=== PATIENT | female | born 1995 | race Caucasian/White ===

== ENCOUNTER 2019-04-22 17:53 | Inpatient (IN) ==
[2019-04-22] MEDS ORDERED: Oxytocin 20 Units + LR 20 UNIT/1,000 ML BAG IV ONE (18:10)
[2019-04-22] MEDS ORDERED: LIDOCAINE HCL 2 % 10 ML JELLY URO-JECT TOPICAL PRN ×2 (18:46→22:38)
[2019-04-22] MEDS ORDERED: MISOPROSTOL 200 MCG TABLET RECTAL PRN (18:46)
[2019-04-22] MEDS ORDERED: NALOXONE 0.4 MG/1 ML VIAL IVP PRN (18:46)
[2019-04-22] MEDS ORDERED: BUTORPHANOL TARTRATE 2 MG/1 ML VIAL IVP PRN (18:46)
[2019-04-22] MEDS ORDERED: Naloxone Inj 0.01 MG in Sodium Chloride 0.9% vial 1 ML IVP PRN (18:46)
[2019-04-22] MEDS ORDERED: FAMOTIDINE 20 MG/2 ML VIAL IVP PRN ×2 (18:46)
[2019-04-22] MEDS ORDERED: METHYLERGONOVINE MALEATE 0.2 MG/1 ML VIAL IM PRN (18:46)
[2019-04-22] MEDS ORDERED: ONDANSETRON 4 MG/2 ML VIAL IVP PRN ×2 (18:46→22:38)
[2019-04-22] MEDS ORDERED: diphenhydrAMINE 50 MG/1 ML VIAL IVP PRN ×2 (18:46→22:38)
[2019-04-22] MEDS ORDERED: fentaNYL Inj 100 MCG/2 ML VIAL IV PRN (18:46)
[2019-04-22] MEDS ORDERED: OXYTOCIN 10 UNIT/1 ML IM PRN (18:46)
[2019-04-22] MEDS ORDERED: CITRIC ACID/SODIUM CITRATE 30 ML CUP PO PRN (18:46)
[2019-04-22] MEDS ORDERED: LIDOCAINE W/ SODIUM BICARB 0.5 ML SYR SUBD PRN (18:46)
[2019-04-22] MEDS ORDERED: CALCIUM CARBONATE 500 MG (TUMS) CHEWABLE TABLET PO PRN ×2 (18:46→22:38)
[2019-04-22] MEDS ORDERED: Metoclopramide Inj 10 MG/2 ML VIAL IV PRN (18:46)
[2019-04-22] MEDS ORDERED: CefOXitin Inj 2 GM in Sodium Chloride 0.9% 100 ML IV PRN (18:46)
[2019-04-22] MEDS ORDERED: Phenylephrine Inj 50 MCG in Sodium Chloride 0.9% vial 0.5 ML IVP PRN (18:46)
[2019-04-22] MEDS ORDERED: Nalbuphine Inj 20 MG/ML Ampule IVP PRN ×2 (18:46→22:38)
[2019-04-22] MEDS ORDERED: ePHEDrine Inj 50 MG/ML AMP IVP PRN (18:46)
[2019-04-22] MEDS ORDERED: Carboprost Inj 250 MCG/ML AMP IM PRN (18:46)
[2019-04-22] MEDS ORDERED: TERBUTALINE SULFATE 1 MG/1 ML SDV SUBCUT PRN (18:46)
[2019-04-22 18:55] LABS: BASOPHILS # (AUTO) 0.02 10*3/UL; BASOPHILS % (AUTO) 0.1 % (0-1); EOSINOPHILS # (AUTO) 0 10*3/UL; EOSINOPHILS % (AUTO) 0 % (0-8); Hematocrit [HCT] 43.3 % (37.0-47.0); Hemoglobin [HGB] 14.7 g/dL (12.0-16.0); LYMPHOCYTES # (AUTO) 1.03 10*3/uL; MEAN CORPUSCULAR HEMOGLOBIN 29.2 PG (27-31); MEAN CORPUSCULAR HGB CONC 33.9 g/dL (33-37); MEAN CORPUSCULAR VOLUME 86.1 FL (81-99); MEAN PLATELET VOLUME 10.9 FL (7.4-12.2); MONOCYTES # (AUTO) 0.63 10*3/UL (0.3-0.8); MONOCYTES % (AUTO) 3.6 % (5-15); NEUTROPHILS # (AUTO) 15.99 10*3/UL; NEUTROPHILS % (AUTO) 90.3 % (50-80); RED BLOOD COUNT 5.03 10^6/uL (4.20-5.40)
[2019-04-22 18:59] LABS: PLATELET MORPHOLOGY COMMENT NORMAL MORPHOLOGY (NORM); RBC MORPHOLOGY COMMENT NORMAL MORPHOLOGY (NORM); WBC MORPHOLOGY COMMENT NORMAL MORPHOLOGY (NORM)
[2019-04-22] MEDS ORDERED: Oxytocin 20 Units + LR 20 UNIT/1,000 ML BAG IV SCH ×2 (19:00→22:38)
[2019-04-22] MEDS ORDERED: Lactated Ringers-OB Dept 1,000 ML PRIMARY IV SCH (19:00)
[2019-04-22] MEDS: Lidocaine 1% 10 MG/ML - 20 ML VIAL SUBCUT PRN ×2 (19:00→20:00)
[2019-04-22 19:43] LABS: HIV ANTIBODY NEGATIVE (N); HIV-1 P24 ANTIGEN NEGATIVE (N)
--- NOTE | 2019-04-22 20:27 | OB.DEL.SUM ---
Delivery Note Delivery Summary: The patient is a 23-year-old G2 now P2 last menstrual period may be the middle of August 2018 but the patient was not sure who presented to labor and delivery thinking that she was in labor. The patient had no care. The patient discovered that she may be about 2 or 3 months ago. The patient started having pain this morning which later this afternoon the patient realizes were contractions and then the patient presented to [facility] thinking that she may be in labor. The patient was found to have a bulging bag with meconium present. The patient spontaneously ruptured. I then checked the patient and the patient was found to be complete and +2 station. Past medical history-noncontributory. No hypertension, no diabetes no asthma. The patient denied drug use. Past surgical history-noncontributory. History of spontaneous vaginal delivery. No known drug allergies Tobacco one pack per day, rare alcohol during this . No drugs per patient. The patient stated that she was in denial of this and did not want to seek care. When the patient presented and had spontaneous rupture of membranes there was meconium. Anesthesia and pediatrics was called. They were present for delivery in labor and delivery. The baby delivered in an OA presentation and the anterior shoulder was delivered and then the posterior shoulder and then the baby had a lusty cry and the mouth and nose were bulb suctioned. The baby was very vigorous and had an excellent cry. Delayed cord clamping was allowed for greater than 30 seconds and then the cord was clamped and cut. The baby was brought over to the warmer. The baby continued to have a lusty cry. A section of cord was obtained for cord gases. Then cord blood was obtained. The patient's placenta was then delivered spontaneously. The patient's perineum was examined and there was a small second degree laceration midline and then there was a laceration right vaginal sidewall/periurethral laceration. The second-degree laceration was repaired with 3-0 Vicryl rapide suture in the usual fashion. The right vaginal sidewall laceration was repaired using 4-0 Vicryl rapide suture in an interrupted fashion. I did place a red rubber catheter to ensure that the urethra was kept patent. The interrupted sutures were 4 mm away from the patient's urethra. There were no other lacerations to repair. A rectal exam was completed to ensure that there were no buttonhole lacerations. Sponge lap and needle counts were correct 2. The patient and her baby would recover in the room. Findings were a male infant with Apgars of 8 and 9. Weight was 7 pounds 0.9 ounces. ABG was completed and was normal but I do not have the results currently. EBL was 350 mL. Group B strep status is unknown. Pediatrics aware.
[2019-04-22 21:14] LABS: AMPHETAMINE SCREEN NEGATIVE (NEG); CANNABINOID SCREEN,URINE NEGATIVE (NEG); COCAINE SCREEN NEGATIVE (NEG); METHADONE URINE SCREEN NEGATIVE (NEG); METHAMPHETAMINES SCREEN,URINE NEGATIVE (NEG); OPIATE SCREEN,URINE NEGATIVE (NEG); URINE SAMPLE TYPE VOIDED SPECIMEN
[2019-04-22] MEDS ORDERED: Lactated Ringers 1,000 ML PRIMARY IV SCH (22:38)
[2019-04-22] MEDS ORDERED: diphenhydrAMINE 25 MG CAPSULE PO PRN (22:38)
[2019-04-22] MEDS ORDERED: Ondansetron ODT Tab 4 MG TAB PO PRN (22:38)
[2019-04-22] MEDS ORDERED: LANOLIN HPA 40 GM TUBE TOPICAL PRN (22:38)
[2019-04-22] MEDS ORDERED: Lidocaine 1% 10 MG/ML - 20 ML VIAL INTRADERM PRN (22:38)
[2019-04-22] MEDS ORDERED: GLYCERIN/WITCH HAZEL 1 BOX TOPICAL PRN (22:38)
[2019-04-22] MEDS ORDERED: HYDROcodone-APAP 5 MG -325 MG TABLET PO PRN (22:38)
[2019-04-22] MEDS ORDERED: DIPH,PERTUSS,TET(ADACEL) VAC/PF 0.5 ML (Tdap) IM ONE (22:38)
[2019-04-22] MEDS ORDERED: ACETAMINOPHEN 325 MG TABLET PO PRN (22:38)
[2019-04-22] MEDS ORDERED: BENZOCAINE/MENTHOL SPRAY 56 GM BOTTLE TOPICAL PRN (22:38)
[2019-04-22] MEDS ORDERED: Lidocaine Inj 1% 20 ML ONE (22:52)
[2019-04-22] MEDS: IBUPROFEN 800 MG TABLET PO PRN (23:10)
[2019-04-23 08:07] LABS: Hematocrit [HCT] 34.8 % (37.0-47.0); MEAN CORPUSCULAR HEMOGLOBIN 29.8 PG (27-31); MEAN CORPUSCULAR HGB CONC 34.5 g/dL (33-37); MEAN CORPUSCULAR VOLUME 86.4 FL (81-99); MEAN PLATELET VOLUME 10.3 FL (7.4-12.2); RED BLOOD COUNT 4.03 10^6/uL (4.20-5.40)
[2019-04-23] MEDS: IBUPROFEN 800 MG TABLET PO PRN (08:19)
[2019-04-23] MEDS ORDERED: Prenatal Multivitamin Tab 1 TAB TAB PO SCH (09:00)
[2019-04-23] MEDS ORDERED: DOCUSATE 100 MG CAPSULE PO SCH (09:00)
[2019-04-23 16:05] VITALS: BP 115/77; RESP 16; TEMP 98.5; O2SAT 98
--- NOTE | 2019-04-23 16:13 | OB.PROGRES ---
Subjective Post Day: 1 Pain Management: PO [place] Catheter: No Flatus: Yes Lochia Color: Rubra/Red Scant < 10 ml Diet: Regular Feeding Method: / Bottle Ambulating: Yes Concerns / Additional Information: The patient states that she is doing okay. Her family and significant other have been extremely supportive since she did not tell them that she was until yesterday evening. She cannot explain why she did not tell them before that time. She cannot explain why she did not make an appointment for OB care. Objective - General General Appearance: POSITIVE: No Acute Distress, Cooperative (Alert and oriented 3. Patient has normal speech and thought processes.) - Cardiovacular Cardiovascular Exam: POSITIVE: RRR Edema: +1 Pedal Edema Extremities: Negative Heidy's - Bilaterally - Respiratory Respiratory Exam: POSITIVE: Clear to Auscultation - Bilaterally - Abdomen Bowel Sounds: Present - Fundus/Lochia/Perineum Uterus Consistency: Firm Uterus Position: POSITIVE: At Umbilicus Other Exam Details: Abdomen soft and nontender without guarding or rebound Assesstment / Plan Assessment / Plan: Assessment: day #1 status post spontaneous vaginal delivery over a small midline laceration and a right periurethral vaginal laceration and both lacerations were repaired. The patient is voiding well. Patient's post labs were normal. Very minimal anemia. Platelets normal. Urine drug screen was negative. The patient cannot explain why she did not inform her significant other about . The patient was scared that they have their own son plus there significant other's nephews and she was concerned that her significant other would be upset that she was . The patient does not have a significant history of depression or depression or anxiety. The patient does not have a history of or does not appear to have psychosis. In talking with the patient, the patient appears to just have been concerned about rejection with this . The patient is so pleased that her family and her significant other have been so accepting of this baby and her since yesterday evening. Plan: Discharge home today. The baby will stay the night and the mother will room in. The patient should make an appointment with me for the next couple weeks so that we can determine how she is doing and then for a 6 week appointment. The patient stated that on Thursday, which is 2 days from now, she will call the stated [place] [employer]'s office to apply for Medicaid. She will also apply for Medicaid for her . The patient should take a multivitamin with folic acid daily. Ibuprofen 200 mg tablets 3-4 tablets by mouth 3 times a day with food or milk. The patient may purchase these [id number] since currently she does not have insurance. Colace 100 mg capsule 1 capsule by mouth daily to twice a day when necessary constipation would be suggested if the patient becomes constipated. The patient was encouraged to drink at least 8-10 glasses of water per day The patient states that she is interested in a tubal ligation. We talked briefly about this but I informed the patient that we could talk about satisfied parity and permanent sterilization with either a vasectomy for her significant other or a tubal ligation for herself when I see her in the office. Sitz baths twice a day for the next 4 weeks with help with healing for her lacerations and repairs. Patient expressed understanding. depression was discussed with the patient. Symptoms and signs were discussed. The labor and delivery nurse will discuss these again with the patient before discharge. Again, the patient will spend the night here with her baby since the baby will be observed overnight. Usual precautions discussed. Patient urged to return to the emergency room for fevers, increase in abdominal pain or unusual bleeding.
[2019-04-23] MEDS ORDERED: DIPH,PERTUSS,TET(ADACEL) VAC/PF 0.5 ML (Tdap) IM ONE (20:00)
== END 2019-04-23 20:09 | disposition home or self-care (01) | DRG 807 ==
LOC: OBOP 17:53 → OBIP 18:47
PROVIDERS: ADMIT Obstetrics & Gynecology; ATTEND Obstetrics & Gynecology